=== PATIENT | female | born 1960 | race Caucasian/White ===

== ENCOUNTER 2025-06-21 09:31 | Outpatient (REF) | payer BC, SELFPAY ==
[2025-06-21 14:15] LABS: Appearance Urine Clear; Glucose Urine UA Negative (Negative); PH 7.0 (5.0-9.0); Specific Gravity - Urine 1.015 (1.005-1.025); UMIC TRIGGER UACC YES
[2025-06-21 14:28] LABS: MANUAL DIFF FLAG NO
[2025-06-21 14:31] LABS: Hematocrit 47.4 % (37.0-47.0); Hemoglobin 15.6 g/dl (12.0-16.0); Imm Gran Abs Auto 0.03 X10*3/uL (0.00-0.03); Imm Gran Pct Auto 0.4 % (0.0-0.4); Lymphocytes Absolute Auto 1.8 X10*3/uL (1.2-4.9); Mean Corpuscular HGB Conc 32.9 g/dl (31.0-35.0); Mean Corpuscular Hemoglobin 28.4 pg (27.0-33.0); Mean Corpuscular Volume 86.3 fL (80.0-98.0); NRBC Abs Auto 0.000 X10*3/uL (0.0-0.012); NRBC Pct Auto 0.0 /100WBC (0.0-0.2); Platelet Count 346 X10*3/uL (160-400); Red Blood Count 5.49 X10*6/uL (4.20-5.50); White Blood Count 6.9 X10*3/uL (4.8-10.8)
[2025-06-21 14:51] LABS: Alanine Aminotransferase 22 U/L (0-31); Aspartate Amino Transferase 20 U/L (5-31); Estimated Glomerular Filt Rate > 60
[2025-06-21 14:53] LABS: Total Protein Urine Random < 7 mg/dL (<12)
[2025-06-23 17:09] LABS: Antibody to SS-A Antigen <1.0 NEG AI (<1.0 NEG); Antibody to SS-B Antigen <1.0 NEG AI (<1.0 NEG); SM/Ribonucleoprotein Ab <1.0 NEG AI (<1.0 NEG); Smith Protein <1.0 NEG AI (<1.0 NEG)
== END 2025-06-21 09:32 | disposition home or self-care (01) ==
LOC: HO.HKASLDS 09:31
PROVIDERS: PCP Internal Medicine; Visit Provider Internal Medicine Rheumatology
DX: I73.00 Raynaud's syndrome without gangrene (principal); K12.1 Other forms of stomatitis; M79.645 Pain in left finger(s); R76.89 Other specified abnormal immunological findings in serum; R50.9 Fever, unspecified; R21 Rash and other nonspecific skin eruption; R76.0 Raised antibody titer; Z79.899 Other long term (current) drug therapy
CPT/HCPCS: 36415; 81001; 82565; 82570; 84156; 84450; 84460; 85025; 85652; 86140; 86160; 86225; 86235; 86431

== ENCOUNTER 2025-06-21 09:31 | Outpatient (AMB) | payer BC, SELFPAY ==
--- NOTE | 2025-06-21 09:34 | MHC.OFFVIS ---
Vital Signs 06/21/25 09:35 Height 5 ft 5 in Weight 165 lb 5.547 oz BMI 27.5 BP 130/80 Blood Pressure Location Rt brachial Position Sitting Pulse 98 Pulse Source Pulse Oximeter Pulse Oximetry (%) 98 Oxygen Delivery Method Room Air Intake Visit Reasons: Raynauds Intake Note: Patient presents today for a follow up for raynauds. Accompanied by: Self / Same As Patient Allergies No Known Allergies Allergy (Verified 06/21/25 09:35) HPI HPI Raynauds: Details: Raynaud's syndrome controlled amlodipine. She feels good in the cold. Intermittent left 2nd DIP pain. Self-limited. Using topical cream prescribed by [facility] with benefit. She also has been experiencing rashes on her neck. The topical cream has been helpful. During summer months she has photosensitivity and does not like being out in the sun. 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 Once a month she has a canker sore in mouth lasting 3-4 days associated with low grade fever. T max 100F. Fever lasts 2-3 days. Denies dyspnea, pleurisy, chest pain, dysphagia, urinary symptoms. No new joint swelling. Physical Exam Exam Exam: General: Comfortable CVS: RRR Respiratory: clear to auscultation bilaterally. Good respiratory effort Skin: No lesions seen, digital ulcerations or discoloration of fingertips MSK: No tender joints. No synovitis. Normal range of motion of upper extremities and lower extremities. Vital Signs: Last Vital Signs Pulse 98 06/21/25 09:35 BP 130/80 06/21/25 09:35 Pulse Ox 98 06/21/25 09:35 Oxygen Delivery Method Room Air 06/21/25 09:35 BMI result Body Mass Index 27.5 Assessment & Plan Assessment & Plan (1) Raynauds phenomenon: Comment: Onset since teenager. Controlled on amlodipine 5 mg daily Code(s): I73.00 - Raynaud's syndrome without gangrene Category: Medical Plan: Continue amlodipine 5 mg daily (2) Positive SNOW (antinuclear antibody): Code(s): R76.89 - Other specified abnormal immunological findings in serum Category: Medical (3) Anticentromere antibodies present: Code(s): R76.89 - Other specified abnormal immunological findings in serum Category: Medical Plan 64-year-old female with past medical history of asthma, Raynaud's phenomenon, positive SNOW and anticentromere antibody with history of recurrent episodes of low-grade fever (99-100 F), oral ulcers, malar rash/neck rash, diffuse joint pain and sicca symptoms. Raynaud's phenomenon is controlled on amlodipine 5 mg daily. She continues to have recurrent episodes of low-grade fevers, oral ulcers and facial rash. Facial rashes are controlled with topical steroid prescribed by Dermatology. I will be further working up for SLE disease activity with labs. I am also ordering additional testing for Sjogren syndrome. Return to clinic in 6 months Orders: Orders Protein Creatinine Ratio, Ur Today R76.0 - Raised antibody titer Alanine Aminotransferase Today R76.0 - Raised antibody titer Aspartate Amino Transferase Today R76.0 - Raised antibody titer Creatinine Today R76.0 - Raised antibody titer Anti DNA DS Antibody Today R76.0 - Raised antibody titer Complement C4 Today R76.0 - Raised antibody titer UA ClnCatch+Micro w/rflx Cult Today R76.0 - Raised antibody titer Rheumatoid Factor Today R76.0 - Raised antibody titer Complete Blood Count Auto Diff Today R76.0 - Raised antibody titer C Reactive Protein Today R76.0 - Raised antibody titer Erythrocyte Sedimentation Rate Today R76.0 - Raised antibody titer Complement C3 Today R76.0 - Raised antibody titer Sm Sm/PUBLIC HEALTH EPIDEMIOLOGIST Antibodies Today R76.0 - Raised antibody titer Anti-Centromere B Antibodies Today R76.0 - Raised antibody titer Sjogren's Antibodies Today R76.0 - Raised antibody titer Medications: New diclofenac sodium 1% apply to affected area every 4-6 hours PRN pain 2 grams topical QID 100 grams 5RF Refilled amlodipine 5 mg PO DAILY 90 tabs 4RF Coding Level of Care Code Est Pt Level 4 (97004) Add On Problem Visit Only Diagnoses Raynauds phenomenon I73.00 Positive SNOW (antinuclear antibody) R76.89 Anticentromere antibodies present R76.89
[2025-06-21 09:35] VITALS: BP 130/80; PULSE 98; O2SAT 98; BMI 27.5
--- OUTSIDE RECORDS SUMMARY | 2025-06-21 09:53 | XMS_ITS ---
Author Organization Unknown ENCOUNTERS Encounter Performer Location Date Diagnosis Diagnosis Status Outpatient [address] [id number] AHR Outpatient [address] [id number] Outpatient [address] [id number] AHR Outpatient [address] [id number] AHR Outpatient HARVEY SANTOS [address] [id number] AHR Outpatient [facility] [address] [place] [id number] AHR Outpatient GUTIERREZ MARTINEZ MD [address] [id number] Outpatient [address] [id number] AHR Outpatient SHASHANK ARVIZU [address] [id number] AHR Outpatient [facility] [address] [place] [id number] Outpatient [address] [id number] AHR Outpatient [address] [id number] AHR Outpatient [address] [id number] AHR Outpatient [facility] [address] [place] [id number] Outpatient [address] [id number] AHR Outpatient [facility] [address] [place] [address] [id number] AHR Lab [address] [id number] AHR Outpatient [address] [id number] AHR Outpatient [facility] [address] [place] [id number] A[facility] Lab [address] [id number] AHR Outpatient [address] [id number] Outpatient DIANNE COSTA DO [address] [id number] Outpatient [facility] [address] [place] [id number] Outpatient [facility] [address] [place] [id number] Outpatient [address] [id number] AHR Outpatient IVANA MENDOSA [facility] [address] [place] [id number] AHR Outpatient [facility] [address] [place] [id number] Outpatient [facility] [address] [place] [id number] [facility] [address] [place] [id number] AHR Outpatient GABRIEL MIRAMONTES [facility] [address] [place] [id number] AHR Outpatient MIRIAM BRUMFIELD NP [facility] [address] [place] [id number] *Note: Encounters from your own facility or health system may be excluded. Allergies, Adverse Reactions, Alerts Allergen Type Severity Identification Date Medications Name Date Quantity Days Supplied GPI Number
== END 2025-06-21 10:16 | disposition home or self-care (01) ==
PROVIDERS: Visit Provider Internal Medicine Rheumatology
DX: I73.00 Raynaud's syndrome without gangrene (principal); R76.89 Other specified abnormal immunological findings in serum
CPT/HCPCS: 99214